=== PATIENT | female | born 1960 | race Asian ===

== ENCOUNTER 2016-09-29 00:16 | Emergency (ER) | payer OTHER ==
[2016-09-29 00:47] VITALS: PULSE 114; BMI 19.3
--- NOTE | 2016-09-29 00:57 | PDOC ---
History of Present Illness - History of Present Illness Initial Comments: 09/29/16 00:54 CHIEF COMPLAINT: HISTORY OF PRESENT ILLNESS: 56-year-old female with past medical history of HPV (KRISH-3 s/p hysterectomy) presents to ED with shivering since 11:30 tonight. Patient states that she had her hysterectomy on September 12 and was discharged the . On September 17, she said her stomach "blew up" and when she went to the ER "they thought that I might have an ileus." As soon as she was seen in the ER "they saw that my bladder had stopped working and they drained 2 L of urine from my bladder." She passed bowel movements on and Saturday of last week and was subsequently sent home. She was prescribed Macrobid for 1 week for a UTI and finished it last Saturday. Today she took 1 dose of Cipro at 9 PM tonight prior to her episode of shaking. She called her brother who is a urologist, who recommended that she keep the catheter in overnight and remove it in the morning. However, she had her episode of "shaking" and came to the ER. She is febrile to 101.2F on arrival to ED. PAST MEDICAL HISTORY: as per HPI FAMILY HISTORY: Denies SOCIAL HISTORY: Lives at home with son. Denies tobacco, alcohol, illicit drug use. SURGICAL HISTORY: as per HPI ALLERGIES: No known drug allergies REVIEW OF SYSTEMS General/Constitutional: Fever, chills, "shaking." Denies weakness, weight change. HEENT: Denies change in vision. Denies ear pain or discharge. Denies sore throat. Cardiovascular: Denies chest pain or shortness of breath. Respiratory: Denies cough, wheezing, or hemoptysis. Gastrointestinal: Nausea. Denies nausea, vomiting, diarrhea or constipation. Denies rectal bleeding. Genitourinary: Denies dysuria, frequency, or change in urination. Musculoskeletal: Denies joint or muscle swelling or pain. Denies neck or back pain. Skin and breasts: Denies rash or easy bruising. Neurologic: Headache, dizziness. Denies loss of consciousness, or loss of sensation. PHYSICAL EXAM General Appearance: Ill-appearing with rigors. Febrile to 101.0F. Appropriately dressed. HEENT: EOMI, PERRLA, normal ENT inspection, normal voice, TMs normal, pharynx normal. No conjunctival pallor. No photophobia, scleral icterus. Neck: Supple. Trachea midline. No tenderness, rigidity, carotid bruit, stridor , lymphadenopathy, or thyromegaly. Respiratory/Chest: Lungs CTAB. No shortness of breath, chest tenderness, respiratory distress, accessory muscle use. No crackles, rales, rhonchi, stridor , wheezing, dullness Cardiovascular: RRR. S1, S2. Vascular Pulses: Dorsalis-Pedis (R): 2+, Dorsalis-Pedis (L): 2+ Gastrointestinal/Abdominal: Normal bowel sounds. Abdomen soft, non-distended. No tenderness or rebound tenderness. No organomegaly, pulsatile mass, guarding , hernia, hepatomegaly, splenomegaly. Genitourinary: Indwelling de paz catheter with minimal urine output. Lymphatic: No adenopathy, tenderness. Musculoskeletal/Extremities: Normal inspection. FROM of all extremities, normal capillary refill. Pelvis Stable. No CVA tenderness. No tenderness to extremities, pedal edema, swelling, erythema or deformity. Integumentary: Clammy, diaphoretic. Neurologic: grinder hand II-XII intact. Fully oriented, alert. Appropriate mood/affect. Motor strength 5/5. No appreciable EOM palsy, facial droop or sensory deficit. 09/29/16 02:27 <Jasmine Hopkins - Last Filed: 09/29/16 06:43> <Anika Lei - Last Filed: 09/29/16 21:54> - General Chief Complaint: Urinary Catheter Problem Stated Complaint: PAIN Time Seen by Provider: 09/29/16 00:40 Past History - Immunization History Immunization Up to Date: Yes - Psycho/Social/Smoking Cessation Hx Suicidal Ideation: No Smoking History: Never smoked Have you smoked in the past 12 months: No Hx Alcohol Use: No (social only) Drug/Substance Use Hx: No Substance Use Type: None <Jasmine Hopkins - Last Filed: 09/29/16 06:43> <Anika Lei - Last Filed: 09/29/16 21:54> - Past Medical History Allergies/Adverse Reactions: Allergies Allergy/AdvReac Type Severity Reaction Status Date / Time No Known Allergies Allergy Verified 07/28/15 23:48 Home Medications: Ambulatory Orders Cetirizine HCl [Zyrtec -] 10 mg PO DAILY 07/28/15 *Physical Exam - Vital Signs Last Vital Signs Temp Pulse Resp BP Pulse Ox 101.2 F H 114 H 18 113/78 99 09/29/16 00:43 09/29/16 00:43 09/29/16 00:43 09/29/16 00:43 09/29/16 00:43 <Jasmine Hopkins - Last Filed: 09/29/16 06:43> - Vital Signs Last Vital Signs Temp Pulse Resp BP Pulse Ox 101.0 F H 114 H 18 113/78 99 09/29/16 03:12 09/29/16 00:43 09/29/16 00:43 09/29/16 00:43 09/29/16 00:43 <Anika Lei - Last Filed: 09/29/16 21:54> ED Treatment Course - LABORATORY CBC & Chemistry Diagram: 09/29/16 02:00 09/29/16 04:00 <Jasmine Hopkins - Last Filed: 09/29/16 06:43> - LABORATORY CBC & Chemistry Diagram: 09/29/16 02:00 09/29/16 04:00 - ADDITIONAL ORDERS Additional order review: Laboratory Results 09/29/16 02:25 VBG pH 7.39 POC VBG pCO2 41.4 POC VBG pO2 19.8 L* 09/29/16 02:00 RBC 4.05 MCV 89.2 MCHC 32.3 RDW 13.4 MPV 7.6 Neutrophils % 86.4 H Lymphocytes % 11.9 Monocytes % 0.5 L Eosinophils % 0.8 Basophils % 0.4 - Medications Given in the ED: ED Medications Discontinued Medications Generic Name Dose Route Start Last Admin Trade Name Freq PRN Reason Stop Dose Admin Ondansetron HCl 8 mg 09/29/16 02:26 09/29/16 02:38 Zofran Odt - SL 09/29/16 02:27 8 mg ONCE ONE Administration <Anika Lei - Last Filed: 09/29/16 21:54> Medical Decision Making - Medical Decision Making 09/29/16 02:27 56-year-old female with past medical history of HPV (KRISH-3 (status post hysterectomy 09/12/16) presents to ED with shivering since 11:30 tonight. At this time there is concern for sepsis secondary to pyelonephritis. -EKG -CBC, CMP, lactic acid, blood cultures, VBG, PT/INR, T&S, trop - sepsis order set -UA, UCx -EKG, CXR -IVF -Zosyn Awaiting labs to be collected. Indwelling catheter removed. Patient unable to urinate, urine sample uncollected. Patient is vomiting persistently and states "I felt like I was going to pass out in the bathroom." -Zofran 8 mg ODT New de paz catheter placed. Minimal urine output. Bedside ultrasound of bladder attempted; was not able to perform due to malfunctioning probe. Patient's WBC 2.4. 09/29/16 04:33 Discussed case with ER attending Do. As patient's [employer] surgeon aPn Gallo and PCP Kavita Alamo are at [facility], will transfer to [facility] for further care. MD Lei discussed case with covering [employer] attending Dr. Panchal, who accepts patient to inpatient admission at [facility]. EMS coordinated for transfer. Patient received Zosyn and IV Ibuprofen while awaiting transfer. Patient reassessed; she states she is "already feeling much better now." Rigors have resolved and patient is able to converse with hospital staff. At time of transfer patient's temp is 99.8. 09/29/16 05:15 Lab reports chemistry was contaminated. Called [facility] to inform them repeat labs should be performed on arrival. <Jasmine Hopkins - Last Filed: 09/29/16 06:43> - Medical Decision Making 09/29/16 21:29 Pt comes with surgical complication, and sepsis, rigors and I managed to track down her surgeon Pan Gallo (Dr. Panchal covering) at [facility], and she accepted the patient back to their ER at [facility] for admission. Basically patient had hysterectomy on Sep 12 d/c home on Sep 13, suffered with urinary retention for the next 3 days and surgeon kept reassuring her over the phone that all was well. After staying awake all night on Sep 16, pt admitted herself to the hospital on Sep 17, and it took over 24 hrs for them to diagnose a complete urinary retention. It was finally diagnosed on CT scan and she had 1800+ml urine drained. Since that time she has had an indwelling catheter with UTIs, one course of antibiotics was given; yesterday pt returned to her surgeon and was told she again has a UTI and she was sent home with cipro , plan to remove the infected de paz on next. Pt arrived with rigors, and it is clear that she will be vastly better off at [facility], where all of her recent blood tests and CXRs and EKGs are . We have little to nothing on file for patient who has been to our ER once only. <Anika Lei - Last Filed: 09/29/16 21:54> *DC/Admit/Observation/Transfer - Discharge Dispostion Admit: No <Jasmine Hopkins - Last Filed: 09/29/16 06:43> - Transfer to Acute Care Facility Receiving Facility: [facility] <Anika Lei - Last Filed: 09/29/16 21:54> Diagnosis at time of Disposition: Sepsis Qualifiers: Sepsis type: sepsis due to unspecified organism Qualified Code(s): A41.9 - Sepsis, unspecified organism Malfunction of indwelling urinary catheter Qualifiers: Encounter type: initial encounter Qualified Code(s): T83.098A - Other mechanical complication of other indwelling urethral catheter, initial encounter - Discharge Dispostion Disposition: TRANSFER ACUTE CARE/OTHER HOSP Condition at time of disposition: Guarded
[2016-09-29] MEDS ORDERED: SODIUM CHLORIDE 0.9% 1000 ML INFUS.BAG IV PRN (01:05)
[2016-09-29] MEDS ORDERED: PIPERACILLIN/TAZOB 3.375 GM 3.375 GM in DEXTROSE 5%-WATER - 50 ML IVPB ONE (01:38)
[2016-09-29] MEDS ORDERED: ONDANSETRON *ODT* 4 MG TABLET SL ONE (02:26)
[2016-09-29] MEDS ORDERED: PIPERACILLIN/TAZOB 3.375 GM 50 ML IVPB ONE (02:28)
[2016-09-29] MEDS ORDERED: ONDANSETRON 4 MG/2 ML VIAL ONE (02:28)
[2016-09-29 02:39] LABS: VENOUS BLOOD GAS HCO3 24.7 meq/L (22-29); VENOUS PH 7.39 (7.31-7.41)
[2016-09-29 02:54] LABS: BASOPHIL 0.4 % (0-2.0); EOSINOPHIL 0.8 % (0-4.5); MCH 28.9 pg (25.7-33.7); MCHC 32.3 g/dl (32.0-36.0); MEAN CELL VOLUME 89.2 fl (80-96); MEAN PLT VOLUME 7.6 fl (7.5-11.1); NEUTROPHILS 86.4 % (42.8-82.8); PLATELET COUNT 377 K/MM3 (134-434); RDW 13.4 % (11.6-15.6); WHITE BLOOD COUNT 2.4 K/mm3 (4.0-10.0)
[2016-09-29] MEDS ORDERED: IBUPROFEN 800 MG/8 ML IJ IVPB ONE ×2 (03:16→06:34)
[2016-09-29] MEDS ORDERED: VANCOMYCIN 1,000 MG in DEXTROSE 5%-WATER - 250 ML IVPB ONE (03:29)
[2016-09-29 03:31] LABS: INR 1.2 (0.82-1.09); PROTHROMBIN TIME (PATIENT) 13.3 SEC (9.98-11.88)
[2016-09-29 03:33] LABS: ACTIVATED PTT 25.9 SECONDS (26.9-34.4)
[2016-09-29] MEDS ORDERED: VANCOMYCIN 1 GRAM (PRE-DOCKED) 250 ML IVPB ONE (03:36)
[2016-09-29 03:42] LABS: TROPONIN I < 0.02 ng/ml (0.00-0.05)
[2016-09-29 06:20] VITALS: BP 103/72; TEMP 99.8
--- NOTE | 2016-09-29 16:20 | EKG ---
Test Reason : Blood Pressure : / mmHG Vent. Rate : 114 BPM Atrial Rate : 114 BPM P-R Int : 156 ms QRS Dur : 090 ms QT Int : 370 ms P-R-T Axes : 073 081 041 degrees QTc Int : 509 ms SINUS TACHYCARDIA POSSIBLE LEFT ATRIAL ENLARGEMENT BORDERLINE ECG NO PREVIOUS ECGS AVAILABLE Confirmed by PAULINA BOB, SENA ([id number]) on 09/29/2016 4:19:59 PM Referred By: Confirmed By:SENA GALLARDO MD
--- NOTE | 2016-10-01 12:03 | PDOC ---
Patient Follow-up (Call Back) - Post ED Follow - Up Reason for Call Back: Abnwl. Microbiology (Patient with positive blood culture. She was transferred and admitted to [facility].) - Post ED Follow - Up Condition at time of discharge: Guarded Disposition at time of original discharge: TRANSFER ACUTE CARE/OTHER HOSP
== END 2016-09-29 07:06 | disposition short-term general hospital (02) ==
LOC: JER 00:16
PROC: 0T2BX0Z Change Drainage Device in Bladder, External Approach (ICD-10-PCS; principal; 2016-09-29)
PROC: 3E03329 Introduction of Other Anti-infective into Peripheral Vein, Percutaneous Approach (ICD-10-PCS; 2016-09-29)
PROC: 3E03329 Introduction of Other Anti-infective into Peripheral Vein, Percutaneous Approach (ICD-10-PCS; 2016-09-29)
DX: T83.511A Infection and inflammatory reaction due to indwelling urethral catheter, initial encounter (principal); A41.81 Sepsis due to Enterococcus
CPT/HCPCS: 36415; 71010-TC; 82550; 82803; 83605; 84484; 85025; 85610; 85730; 86850; 86900; 86901; 87040; 87086; 87186; 93005; 93010; 99284-25